=== PATIENT | male | born 1945 | race African-American/Black ===

== ENCOUNTER → 2017-05-26 | Outpatient (CLI) | payer OTHER, BC ==
[~2017-05-26] VITALS: Ht 188 cm; Wt 142.4 kg
[~2017-05-26] MED LIST: ALDACTONE50 MG PO; AMITIZA24 MICROGR PO; AMLODIPINE BESY10 MG PO; AMLODIPINE-BEN1 EAC5 PO; APRESOLINE50 MG PO; AZOR 10/40 M1 TABLET PO; BISAC-EVAC10 MG PR; CALCITRIOL0.25 MCG PO; CELEXA10 MG PO; CITALOPRAM HBR10 MG PO; CRESTOR10 MG PO; FLEET ENEMA-AD118 ML PR; FUROSEMIDE40 MG PO; HALDOL0.5 MG PO; HALDOL1 MG PO; HUMALOG MI100 UNIT/5 SC; LAMISIL250 MG PO; LASIX20 MG PO; LISINOPRIL40 MG PO; LO-DOSE ASPIRIN81 M1 PO; LOSARTAN POTAS100 MG PO; LOTENSIN40 MG PO; LOTREL 10/41 CAPSULE PO; METOPROLOL TA37.5 MG PO; METOPROLOL TART25 MG PO; MILK OF MAGN PO; OXYCODONE HCL5 MG PO; PRAVASTATIN SOD40 MG PO; PREDNISONE20 MG PO; PROVENTIL HFA6.7 GM IH; RISPERDAL0.5 MG PO; RISPERIDONE1 MG PO; ROCALTROL0.5 MCG PO; SENNA PLUS TAB1 EACH PO; SERTRALINE HCL25 MG PO; TORSEMIDE10 MG PO; TRAMADOL HCL50 MG PO; TRILAFON4 MG PO; TYLENOL REGULA325 MG PO; TYLENOL WITH C1 EACH PO; VIAGRA100 MG PO; ZITHROMAX Z-PA250 MG PO; ZOCOR20 MG PO; ZOLOFT25 MG PO
[2017-05-26 11:09] LABS: POINT-OF-CARE METER ID UU14107333
[2017-05-26 13:50] LABS: POINT-OF-CARE METER ID UU13113819; POINT-OF-CARE USER ID 515036437
[2017-05-26 14:18] LABS: POINT-OF-CARE METER ID UU13113819
[2017-05-26 15:15] LABS: POINT-OF-CARE METER ID UU13113819; POINT-OF-CARE USER ID 515036437
== END | disposition home or self-care (01) ==
LOC: AMB 09:57
PROVIDERS: Internal Medicine Gastroenterology
DX: D12.2 Benign neoplasm of ascending colon (principal); D12.0 Benign neoplasm of cecum; Z86.010 Personal history of colon polyps; E11.22 Type 2 diabetes mellitus with diabetic chronic kidney disease; I12.9 Hypertensive chronic kidney disease with stage 1 through stage 4 chronic kidney disease, or unspecified chronic kidney disease; N18.4 Chronic kidney disease, stage 4 (severe); E78.5 Hyperlipidemia, unspecified; M19.90 Unspecified osteoarthritis, unspecified site; Z82.49 Family history of ischemic heart disease and other diseases of the circulatory system; Z83.3 Family history of diabetes mellitus; Z82.5 Family history of asthma and other chronic lower respiratory diseases; F17.200 Nicotine dependence, unspecified, uncomplicated
CPT/HCPCS: 82948; 88305